=== PATIENT | female | born 1995 | race Hispanic/Latino ===

== ENCOUNTER 2019-06-29 15:57 | Outpatient (CLI) | payer OTHER ==
--- NOTE | 2019-06-29 16:43 | ULT ---
Exam: Pelvic ultrasound HISTORY: Follow-up left ovarian cyst COMPARISON: Prior study obtained at [facility] on 04/19/2019 TECHNIQUE: Multiple grayscale and color Doppler images were obtained in a transabdominal and transvag inal pelvic ultrasound. Spectral analysis of the Doppler waveforms of the ovaries were performed. FINDINGS: CERVIX: Grossly normal in appearance where visualized. UTERUS: Normal in size without focal abnormality. ENDOMETRIAL STRIPE: 5 mm which is within normal limits for a normal menstruating female patient. No f luid or fluid collection is seen in the endometrial canal. No free fluid is present. RIGHT OVARY: There has been interval development of a small anechoic lesion compatible with a dominan t follicle in the right ovary measuring 1.3 cm. The right ovary otherwise demonstrates a normal sonographic appearance. Arterial flow is documented in the right ovary. LEFT OVARY:Normal sonographic appearance with peripheral follicles seen. Previously noted dominant cy stic lesion within the left ovary on the prior exam has resolved. Arterial flow is documented in the left ovary. IMPRESSION: 1. Normal-appearing uterus and bilateral ovaries. Previously noted dominant cystic lesion in the left ovary on the prior study has resolved.
== END 2019-06-29 15:58 | disposition home or self-care (01) ==
LOC: BICULT 15:57
PROVIDERS: ATTEND Obstetrics & Gynecology
DX: N92.6 Irregular menstruation, unspecified (principal)
CPT/HCPCS: 76856